=== PATIENT | male | born 1975 | race Caucasian/White ===

== ENCOUNTER 2019-12-16 07:10 | Day surgery (SDC) | payer BC ==
[2019-12-16] VITALS (9 sets, daily range): BP systolic 121–137; BP diastolic 85–97
[~2019-12-16] VITALS: Ht 170.2 cm; Wt 80.0 kg
[2019-12-16] MEDS ORDERED: famotidine 20mg tablet PO ONE (07:49)
[2019-12-16] MEDS ORDERED: ringers solution, lacted 1,000 ML IV SCH (07:49)
[2019-12-16] MEDS ORDERED: NO HOME MEDS (07:52)
[2019-12-16] MEDS ORDERED: ceFAZolin 2gm in dextrose, iso 50 ML IV ONE (08:00)
[2019-12-16 08:46] LABS: BASOPHILS % (AUTO) 0.8 % (0-1); EOSINOPHILS # (AUTO) 0.4 X10'3 (0-0.9); EOSINOPHILS % (AUTO) 7.8 % (0-6); LYMPHOCYTES # (AUTO) 1.2 X10'3 (1.1-4.8); LYMPHOCYTES % (AUTO) 20.9 % (21-51); MEAN CORPUSCULAR HEMOGLOBIN 29.5 PG (27.0-31.0); MEAN CORPUSCULAR HGB CONC 33.6 g/dL (33.0-36.5); MEAN CORPUSCULAR VOLUME 87.8 FL (78-98); MEAN PLATELET VOLUME 7.1 FL (7.4-10.4); MONOCYTES # (AUTO) 0.6 X10'3 (0-0.9); MONOCYTES % (AUTO) 10.6 % (2-12); NEUTROPHILS # (AUTO) 3.4 X10'3 (1.8-7.7); NEUTROPHILS % (AUTO) 59.9 % (42-75); PRE OP HEMATOCRIT 48.5 % (42.0-52.0); PRE OP HEMOGLOBIN 16.3 g/dL (14.0-17.9); PRE OP PLATELET COUNT 222 X10'3 (140-440); RED BLOOD COUNT 5.53 X10'6 (4.70-6.10); RED CELL DISTRIBUTION WIDTH 13.7 % (11.5-14.5)
[2019-12-16] MEDS ORDERED: BUPIVAcaine/PF 2.5 mg/ml (0.25%) 30ml vial ONE (08:49)
[2019-12-16 09:01] LABS: ALBUMIN/GLOBULIN RATIO 1.1 (1.1-1.5); ALKALINE PHOSPHATASE 74 IU/L (46-116); BLOOD UREA NITROGEN 15 MG/DL (7-18); BUN/CREATININE RATIO 16.1 (5.4-32.0); CALCIUM 8.9 MG/DL (8.5-10.1); CHLORIDE 107 MMOL/L (99-107); CREATININE 0.93 MG/DL (0.60-1.10); PRE OP ALT 46 U/L (30-65); PRE OP ANION GAP 8 (8-16); PRE OP AST 25 U/L (10-37); PRE OP BILIRUB, TOTAL 0.6 MG/DL (0.0-1.0); PRE OP GLUCOSE 90 MG/DL (70-104); PRE OP POTASSIUM 4.2 MMOL/L (3.4-5.1); PRE OP SODIUM 143 MMOL/L (135-145); TOTAL CARBON DIOXIDE 28.5 MMOL/L (24-32); TOTAL PROTEIN 7.6 G/DL (6.4-8.2); eGFR 89 ML/MIN
[2019-12-16] MEDS ORDERED: fentaNYL/PF 50MCG/1 ML 2ML syringe ONE ×2 (09:12→09:34)
[2019-12-16] MEDS ORDERED: MIDAZolam 5mg/5ml vial ONE (09:12)
[2019-12-16] MEDS ORDERED: LIDOcaine 1%/PF 5ML 10 MG/ML VIAL ONE (09:33)
[2019-12-16] MEDS ORDERED: ROPIVAcaine 0.5% (5mg/ml) 30ml vial ONE (09:33)
[2019-12-16] MEDS ORDERED: propofol inj 20 ML IV ONE (09:33)
[2019-12-16] MEDS ORDERED: ketamine 50mg/5ml syringe ONE (09:38)
[2019-12-16] MEDS ORDERED: glycopyrrolate 0.2mg/ml inj ONE (10:39)
--- NOTE | 2019-12-16 10:43 | NUR ---
Received from OR via , accompanied by Anesthesiologist DL and report given by Anesthesiolgist. AWAKE IN NO RESP DISTRESS SKIN WARMAND DRY HOB AND LUE ELEVATED, FINGERS WARM PINK GOOD CAP REFILL, NO CO PAIN. GOOD RAD PULSES. LUE IN SLING.
[2019-12-16] MEDS ORDERED: HYDROcodone/acetaminophen 10/325mg tab PO PRN (10:55)
--- NOTE | 2019-12-16 12:03 | NUR ---
AWAKE VS WNL, NO CO PAIN, DSG DI, ICE TO LEFT ARM, FINGERS WARM PINK GOOD CAP REFILL AND RAD PULSES. USES SLING, DISCH INSTR GIVEN TO PT AND UNDERSTOOD. DISCH HOME WITH FRIEND.
== END 2019-12-16 12:03 | disposition home or self-care (01) ==
LOC: PAS 07:10
PROVIDERS: ATTEND Orthopaedic Surgery
DX: S46.212A Strain of muscle, fascia and tendon of other parts of biceps, left arm, initial encounter (principal); G89.18 Other acute postprocedural pain; Z79.899 Other long term (current) drug therapy; X58.XXXA Exposure to other specified factors, initial encounter; Y93.89 Activity, other specified; Y92.89 Other specified places as the place of occurrence of the external cause; Y99.8 Other external cause status
CPT/HCPCS: 24342; 36415; 64415; 80053; 85025; C1713; J2250; J2704; J3010; J3490; J7120; A4215; A4565; A4618; A6449; A7000; J2795